=== PATIENT | female | born 1985 | race Caucasian/White ===

== ENCOUNTER 2019-02-08 00:24 | Emergency (ER) | payer SELFPAY ==
[~2019-02-08] VITALS: Ht 165.1 cm; Wt 64.9 kg
--- NOTE | 2019-02-08 01:14 | NUR ---
BIBSELF WITH FRIEND FROM HOME. TO ER BED 11. AAOX4. NO RESP DISTRESS NOTED, BREATHING EVEN AND UNLABORED. C/O NECK PAIN AND PAINFUL SWALLOWING. PER PT, NECK PAIN STARTED 3 WEEK AGO. ROM INTACT. 01/06. THEN 3 DAYS AGO DEVELOPED PAINFULL SWALLOWING 01/06. NOTED SWELLING ON THE NECK. MD AT BEDSIDE FOR EVAL. ORDERS RECEIVED, NOTED AND CARRIED OUT. IV LINE OBTAINED ON R AC 20G. BLOOD DRAWN AND GIVEN TO [employer] AT BEDSIDE.
[2019-02-08 01:15] LABS: BASOPHILS # (AUTO) 0.1 /CMM (0.0-0.2); BASOPHILS % (AUTO) 0.5 % (0.0-2.0); EOSINOPHILS % (AUTO) 3.7 % (0.0-6.0); HEMATOCRIT 36 % (33-45); HEMOGLOBIN 11.9 g/dL (11.5-14.8); LYMPHOCYTES # (AUTO) 2.1 /CMM (0.8-4.8); LYMPHOCYTES % (AUTO) 18.6 % (20.0-44.0); MEAN CORPUSCULAR HGB CONC 34 g/dl (31.0-36.0); MEAN CORPUSCULAR VOLUME 86 fL (82-100); MONOCYTES # (AUTO) 1.1 /CMM (0.1-1.30); MONOCYTES % (AUTO) 9.8 % (2.0-12.0); NEUTROPHILS # (AUTO) 7.7 /CMM (1.8-8.9); NEUTROPHILS % (AUTO) 67.4 % (43.0-81.0); PLATELET COUNT (AUTO) 282 /CMM (150-450); RED BLOOD CELL COUNT(AUTO) 4.12 MIL/uL (4.0-5.2); WHITE BLOOD COUNT (AUTO) 11.4 K/uL (4.3-11.0)
[2019-02-08 01:23] LABS: CALCIUM, SERUM 8.9 mg/dL (8.5-10.1); CREATININE 0.7 mg/dL (0.6-1.3); POTASSIUM 4.2 mmol/L (3.5-5.1)
[2019-02-08] MEDS ORDERED: IOHEXOL-300 100 ML VIAL IV ONE (01:30)
[2019-02-08] MEDS ORDERED: CT SWABBABLE VALVE TRANS SET 1 EA INFUS.SET MC ONE (01:30)
[2019-02-08] MEDS ORDERED: IV NS 0.9% 250 ML IV ONE (01:30)
[2019-02-08 01:39] LABS: APPEARANCE,URINE Clear (CLEAR); BILIRUBIN,URINE Negative (NEGATIVE); BLOOD, URINE Trace-intact Ery/uL (NEGATIVE); COLOR,URINE Yellow (YELLOW); KETONES,URINE Negative (NEGATIVE); LEUKOCYTE ESTERASE ,URINE Negative (NEGATIVE); NITRITE, URINE Negative (NEGATIVE); PH,URINE 8.5 (5.0-8.0); PROTEIN,URINE Negative (NEGATIVE); UGLUCOSE Negative (NEGATIVE)
[2019-02-08 01:45] LABS: BACTERIA,URINE None seen /HPF (None Seen); RBC,URINE 0-2 /HPF (0-2); SQUAMOUS EPITHELIAL CELL,UR Few /HPF (None Seen); WBC,URINE 0-2 /HPF (0-3)
[2019-02-08 02:55] LABS: THYROID STIMULATING HORMONE 0.016 uIU/mL (0.358-3.74)
--- NOTE | 2019-02-08 04:26 | NUR ---
IV removed. Catheter intact and site benign. Pressure and 4x4 applied to site. No bleeding noted.Patient discharged to home in stable condition. Written and verbal after care instructions given. Patient verbalizes understanding of instruction. Pt ambulatory with a steady gait
[2019-02-08 04:29] VITALS: BP 111/71
== END 2019-02-08 04:29 | disposition home or self-care (01) ==
LOC: ER 00:35
DX: E03.9 Hypothyroidism, unspecified (principal); E04.1 Nontoxic single thyroid nodule; E06.9 Thyroiditis, unspecified
CPT/HCPCS: 36415; 70491; 76536; 80048; 81001; 84439; 84443; 84481; 84703; 85025; 99284; J7050; Q9967; 81000-TC

== ENCOUNTER 2025-03-25 12:28 | Emergency (ER) | payer MEDICAID, OTHER ==
[~2025-03-25] VITALS: Ht 160 cm; Wt 77.1 kg
[2025-03-25 12:54] VITALS: BP 119/97; TEMP 98.3
[2025-03-25] MEDS ORDERED: NAPR-1009 PO (14:09)
[2025-03-25] MEDS ORDERED: IBUPROFEN 600 MG TABLET ONE (14:13)
[2025-03-25 14:26] VITALS: O2SAT 99
[2025-03-25] MEDS: IBUPROFEN 600 MG TABLET PO ONE (14:26)
== END 2025-03-25 14:27 | disposition home or self-care (01) ==
LOC: ER 12:35
DX: R68.84 Jaw pain (principal)